=== PATIENT | female | born 1985 | race Caucasian/White ===

== ENCOUNTER 2017-10-28 10:31 | Emergency (ER) | payer OTHER ==
--- NOTE | 2017-10-28 11:19 | ED ---
General Adult HPI - General Chief complaint: Vaginal Bleeding Stated complaint: Bleeding/11 wks Time Seen by Provider: 10/28/17 11:09 Source: patient, RN notes reviewed Mode of arrival: ambulatory Limitations: no limitations - History of Present Illness Initial comments: 32-year-old female presents to the emergency department with a chief complaint of vaginal bleeding in . Patient is currently 11 weeks . She is a . Patient states she started have some vaginal bleeding. There is no cramping with it. She states that she has not had any ultrasound yet in this . They were concerned due to her pain so she thought that she should be evaluated. Patient denies any recent fever, chills, shortness of breath, chest pain, back pain, abdominal pain, nausea vomiting, numbness or tingling, dysuria or hematuria, constipation or diarrhea, headaches or visual changes, or any other current symptoms. - Related Data Home Medications Medication Instructions Recorded Confirmed Levothyroxine Sodium [Synthroid] 150 mcg PO QAM 10/28/17 10/28/17 Mez-Cdkk-Kapnz Acid 1 cap PO W/SUPPER 10/28/17 10/28/17 [-U Capsule (formulary)] Allergies Allergy/AdvReac Type Severity Reaction Status Date / Time No Known Allergies Allergy Verified 10/28/17 10:58 Review of Systems ROS Statement: Those systems with pertinent positive or pertinent negative responses have been documented in the HPI. ROS Other: All systems not noted in ROS Statement are negative. Past Medical History Past Medical History: Thyroid Disorder History of Any Multi-Drug Resistant Organisms: None Reported Past Surgical History: Ear Surgery Additional Past Surgical History / Comment(s): D&C Past Psychological History: No Psychological Hx Reported Smoking Status: Former smoker Past Alcohol Use History: None Reported Past Drug Use History: None Reported General Exam - General Exam Comments Initial Comments: General: The patient is awake and alert, in no distress, and does not appear acutely ill. Eye: Pupils are equal, round and reactive to light, extra-ocular movements are intact; there is normal conjunctiva bilaterally. No signs of icterus. Ears, nose, mouth and throat: There are moist mucous membranes. Neck: The neck is supple, there is no tenderness. Cardiovascular: There is a regular rate and rhythm. No murmur, rub or gallop is appreciated. Respiratory: Lungs are clear to auscultation, respirations are non-labored, breath sounds are equal. No wheezes, stridor, rales, or rhonchi. Gastrointestinal: Soft, non-distended, non-tender abdomen without masses or organomegaly noted. There is no rebound or guarding present. No CVA tenderness. Bowel sounds are unremarkable. Back: There is no tenderness to palpation in the midline. There is no obvious deformity. No rashes noted. Musculoskeletal: Normal ROM, no tenderness, There is no pedal edema. There is no calf tenderness or swelling. Sensation intact. Pulses equal bilaterally 2+. Neurological: CN II-XII intact, There are no obvious motor or sensory deficits. Coordination appears grossly intact. Speech is normal. Skin: Skin is warm and dry and no rashes or lesions are noted. Psychiatric: Cooperative, appropriate mood & affect, normal judgment. Limitations: no limitations Course Vital Signs 10/28/17 10:43 Temperature 99.7 F H Pulse Rate 83 Respiratory 18 Rate Blood Pressure 167/83 O2 Sat by Pulse 97 Oximetry Medical Decision Making - Medical Decision Making 32-year-old female presents for vaginal bleeding in . At this time patient's ultrasound lab work is been reviewed. We did discuss the pelvic area throat. She states she'll follow-up with her only THERAPIST SPEECH for this. We did discuss results return parameters all questions. Patient stated that she understood and she is given plan. She'll be discharged. - Lab Data Result diagrams: 10/28/17 11:42 10/28/17 11:42 Lab Results 10/28/17 10/28/17 10/28/17 Range/Units 11:42 11:42 11:42 WBC 8.2 (3.8-10.6) k/uL RBC 4.42 (3.80-5.40) m/uL Hgb 13.2 (11.4-16.0) gm/dL Hct 39.4 (34.0-46.0) % MCV 89.1 (80.0-100.0) fL MCH 29.9 (25.0-35.0) pg MCHC 33.6 (31.0-37.0) g/dL RDW 12.5 (11.5-15.5) % Plt Count 257 (150-450) k/uL Neutrophils % 70 % Lymphocytes % 22 % Monocytes % 4 % Eosinophils % 2 % Basophils % 0 % Neutrophils # 5.8 (1.3-7.7) k/uL Lymphocytes # 1.8 (1.0-4.8) k/uL Monocytes # 0.3 (0-1.0) k/uL Eosinophils # 0.2 (0-0.7) k/uL Basophils # 0.0 (0-0.2) k/uL Sodium 137 (137-145) mmol/L Potassium 4.2 (3.5-5.1) mmol/L Chloride 106 (98-107) mmol/L Carbon Dioxide 21 L (22-30) mmol/L Anion Gap 10 mmol/L BUN 7 (7-17) mg/dL Creatinine 0.51 L (0.52-1.04) mg/dL Est GFR (MDRD) Af Amer >60 (>60 ml/min/1.73 sqM) Est GFR (MDRD) Non-Af >60 (>60 ml/min/1.73 sqM) Glucose 89 (74-99) mg/dL Calcium 9.6 (8.4-10.2) mg/dL Total Bilirubin 0.2 (0.2-1.3) mg/dL AST 18 (14-36) U/L ALT 25 (9-52) U/L Alkaline Phosphatase 55 (38-126) U/L Total Protein 6.6 (6.3-8.2) g/dL Albumin 3.9 (3.5-5.0) g/dL HCG, Quant 27305.9 mIU/mL Urine Color Urine Appearance (Clear) Urine pH (5.0-8.0) Ur Specific [place] (1.001-1.035) Urine Protein (Negative) Urine Glucose (UA) (Negative) Urine Ketones (Negative) Urine Blood (Negative) Urine Nitrite (Negative) Urine Bilirubin (Negative) Urine Urobilinogen (<2.0) mg/dL Ur Leukocyte Esterase (Negative) Urine RBC (0-5) /hpf Urine WBC (0-5) /hpf Ur Squamous Epith Cells (0-4) /hpf Urine Bacteria (None) /hpf Urine Mucus (None) /hpf Blood Type O Positive Blood Type Recheck No 10/28/17 Range/Units 11:42 WBC (3.8-10.6) k/uL RBC (3.80-5.40) m/uL Hgb (11.4-16.0) gm/dL Hct (34.0-46.0) % MCV (80.0-100.0) fL MCH (25.0-35.0) pg MCHC (31.0-37.0) g/dL RDW (11.5-15.5) % Plt Count (150-450) k/uL Neutrophils % % Lymphocytes % % Monocytes % % Eosinophils % % Basophils % % Neutrophils # (1.3-7.7) k/uL Lymphocytes # (1.0-4.8) k/uL Monocytes # (0-1.0) k/uL Eosinophils # (0-0.7) k/uL Basophils # (0-0.2) k/uL Sodium (137-145) mmol/L Potassium (3.5-5.1) mmol/L Chloride (98-107) mmol/L Carbon Dioxide (22-30) mmol/L Anion Gap mmol/L BUN (7-17) mg/dL Creatinine (0.52-1.04) mg/dL Est GFR (MDRD) Af Amer (>60 ml/min/1.73 sqM) Est GFR (MDRD) Non-Af (>60 ml/min/1.73 sqM) Glucose (74-99) mg/dL Calcium (8.4-10.2) mg/dL Total Bilirubin (0.2-1.3) mg/dL AST (14-36) U/L ALT (9-52) U/L Alkaline Phosphatase (38-126) U/L Total Protein (6.3-8.2) g/dL Albumin (3.5-5.0) g/dL HCG, Quant mIU/mL Urine Color Yellow Urine Appearance Clear (Clear) Urine pH 5.5 (5.0-8.0) Ur Specific [place] 1.013 (1.001-1.035) Urine Protein Negative (Negative) Urine Glucose (UA) Negative (Negative) Urine Ketones Negative (Negative) Urine Blood Large H (Negative) Urine Nitrite Negative (Negative) Urine Bilirubin Negative (Negative) Urine Urobilinogen <2.0 (<2.0) mg/dL Ur Leukocyte Esterase Negative (Negative) Urine RBC 2 (0-5) /hpf Urine WBC <1 (0-5) /hpf Ur Squamous Epith Cells 1 (0-4) /hpf Urine Bacteria Rare H (None) /hpf Urine Mucus Rare H (None) /hpf Blood Type Blood Type Recheck - Radiology Data Radiology results: report reviewed, image reviewed Disposition Clinical Impression: Vaginal bleeding during , antepartum, Subchorionic bleed Disposition: HOME SELF-CARE Condition: Stable Instructions: (ED) Additional Instructions: Please use medication as discussed. Please follow up with family doctor if symptoms have not improved over the next two days. Please return to the emergency room if your symptoms increase or worsen or for any other concerns. Referrals: Yadi Bright MD [Primary Care Provider] - 1-2 days Time of Disposition: 13:01
[2017-10-28 12:05] LABS: Basophils % (A) 0 %; Eosinophils # (A) 0.2 k/uL (0-0.7); Eosinophils % (A) 2 %; HCT 39.4 % (34.0-46.0); HGB 13.2 gm/dL (11.4-16.0); Lymphocytes # (A) 1.8 k/uL (1.0-4.8); Lymphocytes % (A) 22 %; MCH 29.9 pg (25.0-35.0); MCHC 33.6 g/dL (31.0-37.0); MCV 89.1 fL (80.0-100.0); Mean Platelet Volume 7.6; Monocytes # (A) 0.3 k/uL (0-1.0); Monocytes % (A) 4 %; Neutrophils # (A) 5.8 k/uL (1.3-7.7); Neutrophils % (A) 70 %; Platelet Count 257 k/uL (150-450); RBC 4.42 m/uL (3.80-5.40); RDW 12.5 % (11.5-15.5); WBC 8.2 k/uL (3.8-10.6)
[2017-10-28 12:13] LABS: ALT 25 U/L (9-52); AST 18 U/L (14-36); Albumin 3.9 g/dL (3.5-5.0); Alkaline Phosphatase 55 U/L (38-126); Anion Gap 10 mmol/L; Blood Urea Nitrogen 7 mg/dL (7-17); Calcium 9.6 mg/dL (8.4-10.2); Carbon Dioxide 21 mmol/L (22-30); Chloride 106 mmol/L (98-107); Glucose 89 mg/dL (74-99); Potassium 4.2 mmol/L (3.5-5.1); Sodium 137 mmol/L (137-145); Total Bilirubin 0.2 mg/dL (0.2-1.3); Total Protein 6.6 g/dL (6.3-8.2)
--- NOTE | 2017-10-28 12:32 | US ---
EXAMINATION TYPE: US OB <= 14 wk fetus DATE OF EXAM: 10/28/2017 COMPARISON: NONE CLINICAL HISTORY: Pain. Bleeding x 1 day, 4, miscarriage 3 EXAM PERFORMED: Transabdominal (TA) EXAM MEASUREMENTS: GESTATIONAL AGE / DATING Physician Established: Not established yet Dates by LMP: (11 weeks/3 days) EDC: 05/16/2018 Dates by First Scan: This is 1st scan Dates by Current Scan for: (12 weeks/1 days) EDC: 05/11/2018 MATERNAL ANATOMY Uterus: 9.6 x 6.3 x 9.0cm Right Ovary: 3.2 x 1.8 x 1.5cm Left Ovary: 3.6 x 2.2 x 3.7cm Post CDS / Adnexa: wnl Presence of free fluid: no Presence of corpus luteal cyst: left ovary: 1.8 x 1.8 x 2.1cm hypoechoic area, probable corpus luteum Presence of subchorionic bleed: 2.8 x 1.3 x 2.3cm hypoechoic superior to gestational sac, possible correa bchorionic bleed GESTATION / SURVEY CRL: 5.5cm (12 weeks/1 days) Yolk Sac (normal less than 6mm): not seen at this time Heart Rate: 167 bpm Rhythm: Normal IUP: Viable IUP Date of LMP: 08/09/2017 Beta HcG (if available): Not available at time of exam IMPRESSION: Viable single IUP measuring 12 weeks 1 day with a heart rate of 167bpm and an estimated delivery date of 05/11/2018. 2.8cm hypoechoic area superior to gestational sac, likely represents a subchorionic h emorrhage.
[2017-10-28 12:47] LABS: Appearance,Urine Clear (Clear); Bilirubin,Urine Negative (Negative); Blood,Urine Large (Negative); Color,Urine Yellow; Glucose,Urine (UA) Negative (Negative); Ketones,Urine Negative (Negative); Leukocyte Esterase,Urine Negative (Negative); Mucus,Urine Rare /hpf; Nitrite,Urine Negative (Negative); PH, Urine 5.5 (5.0-8.0); Protein,Urine Negative (Negative); RBC,Urine 2 /hpf (0-5); Specific Gravity,Urine 1.013 (1.001-1.035); Squamous Epithelial Cell,Urine 1 /hpf (0-4); Urobilinogen,Urine <2.0 mg/dL (<2.0); WBC,Urine <1 /hpf (0-5)
[2017-10-28 12:50] LABS: Bacteria,Urine Rare /hpf
[2017-10-28 13:00] LABS: HCG,Quantitative Serum 83922.9 mIU/mL
[2017-10-28 13:14] VITALS: BP 143/89; PULSE 67; RESP 16; TEMP 97.6
== END 2017-10-28 13:14 | disposition home or self-care (01) ==
LOC: EC 10:31
DX: O20.8 Other hemorrhage in early pregnancy (principal); O99.281 Endocrine, nutritional and metabolic diseases complicating pregnancy, first trimester; Z3A.11 11 weeks gestation of pregnancy; Z87.891 Personal history of nicotine dependence; Z79.899 Other long term (current) drug therapy
CPT/HCPCS: 36415; 76801; 80053; 81001; 84702; 85025; 86900; 86901; 87086; 99284

== ENCOUNTER 2020-10-10 06:19 | Inpatient (IN) | payer OTHER ==
[2020-10-04 17:37] VITALS: BMI 45.8
--- NOTE | 2020-10-09 19:31 | P.HPOB ---
History of Present Illness H&P Date: 10/09/20 Chief Complaint: Scheduled repeat section This is a 34 y.o. female 6, para 1, with an estimated date of confinement of 10/15/2020, estimated gestational age of 39-2/7 weeks, who presents for scheduled repeat section. She has good movement and irregular contractions. course has been uncomplicated. Initial drug screen was positive for marijuana, but repeat screen was neg. labs: Hepatitis B surface antigen-neg RPR-NR Rubella-immune Blood type-O+ Antibody screen-neg Hemoglobin-12.9 Random glucose-104 Quad-wnl 1 hr. GTT-151; 3 hr. GTT-wnl GBS-positive OB Hx: Hx 3 miscarriages and 1 termination of . Last was primary for macrosomia at term with wt. of 12#. Vehicle Check In Clerk Hx: No hx STDs. Review of Systems Constitutional: Denies chills, Denies fever Eyes: denies blurred vision, denies pain Ears, nose, mouth and throat: Denies headache, Denies sore throat Cardiovascular: Denies chest pain, Denies shortness of breath Respiratory: Denies cough Gastrointestinal: Reports abdominal pain (mild) Genitourinary: Reports pelvic pain, Reports Musculoskeletal: Reports low back pain Integumentary: Denies pruritus, Denies rash Neurological: Denies numbness, Denies weakness Psychiatric: Denies anxiety, Denies depression Past Medical History Past Medical History: Thyroid Disorder History of Any Multi-Drug Resistant Organisms: None Reported Past Surgical History: Section Additional Past Surgical History / Comment(s): D&C, myringotomy with tubes, wisdom teeth Past Anesthesia/Blood Transfusion Reactions: No Reported Reaction Past Psychological History: No Psychological Hx Reported Smoking Status: Former smoker Past Alcohol Use History: None Reported 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 No significant issues noted on an osteopathic structural exam other than those noted in the History and Physical/Consult. HEENT: within normal limits Heart: regular rate and rhythm Lungs: clear to auscultation bilaterally Abdomen: , FH-45 cm. Cervix: closed/50%/out of pelvis Extremities: neg. Hugh's Results Result Diagrams: 10/10/20 06:42 Assessment and Plan (1) 39 weeks gestation of Current Visit: No Status: Acute Code(s): Z3A.39 - 39 WEEKS GESTATION OF Jojo GONZALES SNOMED Code(s): 03777991 (2) Previous section Current Visit: No Status: Acute Code(s): Z98.891 - HISTORY OF UTERINE SCAR FROM PREVIOUS SURGERY SNOMED Code(s): 310815546 Plan: Proceed with repeat section. I have discussed the risks, benefits, and alternative therapies for the above-mentioned procedure and for both sedation/anesthesia as well as necessary blood products administration, if indicated, as they pertain to this patient. The patient has indicated her understanding and acceptance of the risks and procedures discussed.
[2020-10-10] MEDS ORDERED: LACTATED RINGERS 1,000 ML IV ONE (06:33)
[2020-10-10] MEDS ORDERED: LIDOCAINE 1% (10MG/ML) FOR IV START INTRADERMA PRN (06:33)
[2020-10-10] MEDS ORDERED: CITRIC ACID-SODIUM CITRATE 15 ML CUP PO ONE (06:33)
[2020-10-10] MEDS ORDERED: ceFAZolin 3 GM in SODIUM CHLORIDE 0.9% 100 ML IVPB ONE (06:33)
[2020-10-10 06:59] LABS: Basophils # (A) 0.1 k/uL (0-0.2); Basophils % (A) 1 %; Eosinophils # (A) 0.3 k/uL (0-0.7); Eosinophils % (A) 2 %; HCT 40.1 % (34.0-46.0); HGB 13.5 gm/dL (11.4-16.0); Lymphocytes # (A) 2.9 k/uL (1.0-4.8); Lymphocytes % (A) 22 %; MCH 30.4 pg (25.0-35.0); MCHC 33.7 g/dL (31.0-37.0); MCV 90.3 fL (80.0-100.0); Mean Platelet Volume 8.2; Monocytes # (A) 0.6 k/uL (0-1.0); Monocytes % (A) 5 %; Neutrophils # (A) 8.8 k/uL (1.3-7.7); Neutrophils % (A) 69 %; Platelet Count 264 k/uL (150-450); RBC 4.44 m/uL (3.80-5.40); RDW 13.3 % (11.5-15.5); WBC 12.8 k/uL (3.8-10.6)
[2020-10-10] MEDS ORDERED: KETOROLAC 15 MG/ML 1 ML VIAL ONE (07:55)
[2020-10-10] MEDS ORDERED: OXYTOCIN 10 UNIT/ML 1 ML VIAL ONE (07:55)
[2020-10-10] MEDS ORDERED: MORPHINE SULFATE (PF) 0.3 MG/0.3 ML SYR ONE (07:55)
[2020-10-10] MEDS ORDERED: ePHEDrine SULFATE/0.9% NACL/PF 50 MG/5 ML SYRINGE IV ONE (07:55)
--- NOTE | 2020-10-10 08:45 | P.OP ---
Date of Procedure: 10/10/20 Preoperative Diagnosis: 1. Intrauterine at 39-2/7 weeks. 2. History of previous section. 3. macrosomia. Postoperative Diagnosis: Same plus transverse lie Procedure(s) Performed: Repeat low transverse section Anesthesia: spinal (Duramorph) Surgeon: Marcela Lipscomb Painter Ski Edge #1: Wong Murcia Estimated Blood Loss (ml): 400 Pathology: none sent Condition: stable Disposition: floor Indications for Procedure: This is a 34-year-old female 6 para 1 at 39-2/7 weeks who presents for scheduled repeat section. She has a history of macrosomia with her last and this it appears that she has a very large baby also. Her ultrasound at 35 weeks' did show baby in a breech presentation. I have discussed the risks, benefits, and alternative therapies for the above- mentioned procedure and for both sedation/anesthesia as well as necessary blood products administration, if indicated, as they pertain to this patient. The patient has indicated her understanding and acceptance of the risks and procedures discussed. Operative Findings: A viable male infant is noted in the transverse lie with head towards the left lower pelvis. scores are 9 at 1 minute and 9 at 5 minutes and infant weight is 9 lbs. 8 oz. Normal uterus tubes and ovaries are noted. Description of Procedure: The patient is taken to the operating room where she is placed in the dorsal supine position with leftward tilt after spinal Duramorph anesthesia is given. She is prepped and draped in the normal sterile fashion. Skin was tested and found to be adequately anesthetized. A Pfannenstiel skin incision was made with a scalpel through the previous laparotomy scar. A second knife was used to carry the incision down to the underlying layer of fascia. The fascia was nicked in the midline with a scalpel and then extended laterally bilaterally with Donis scissors. There was significant rectus muscle diastases. The anterior lip of the fascia was grasped with 2 Bean clamps and then dissected off the underlying rectus muscle in the midline with Donis scissors. The inferior aspect of the fascial incision was grasped with 2 Bean clamps and dissected off the underlying rectus muscle and the midline with Donis scissors. Next the peritoneum layer was tented up with 2 hemostats and then entered sharply with the scalpel. The incision is extended superiorly and inferiorly with Metzenbaum scissors. Next a DeLee retractor is placed. The vesicouterine peritoneum is entered sharply with Metzenbaum scissors and extended laterally bilaterally with Metzenbaum scissors and then the bladder flap is pushed inferiorly. The lower uterine segment is incised in transverse fashion with the scalpel and then bluntly entered with a hemostat. Clear fluid is noted. The incision was then extended laterally bilaterally with 2 fingers. The was noted to be in transverse lie with the head towards the left side. The head was brought to the incision. Next the 's head is delivered through the incision. Nose and mouth are bulb suctioned. The remainder of the infant is easily delivered and placed on mother's abdomen. Cord is clamped and cut. is taken to warmer by nursing staff. Uterine fundus is gently massaged and placenta is delivered manually. Uterus is exteriorized and cleared of all clots and debris. Uterine incision is closed with 0 Vicryl suture in a running locked fashion. A second layer of 0 Vicryl suture is used in a running fashion for hemostasis. Posterior cul-de-sac is suctioned of all clots and debris. Uterus is returned to the abdomen. Incision is noted to be hemostatic. Peritoneal layer is closed with 0 Vicryl suture in a running fashion. There is noted to be some omental adhesion to the left lower side of the anterior abdominal wall. The muscle was not brought together due to diastases. Fascia layer is then closed with 0 PDS suture with 2 sutures meeting in the midline and the knots buried in either side and in the midline. The subcutaneous tissue was then closed with 2-0 Vicryl suture. Skin layer was then closed with ronald. All sponge and needle counts are correct. The patient is taken to recovery room in stable condition.
[2020-10-10] MEDS ORDERED: ACETAMINOPHEN TAB 325 MG TAB PO PRN (09:13)
[2020-10-10] MEDS ORDERED: OXYTOCIN 20 UNITS/1000 ML NS 1,000 ML IV SCH (09:13)
[2020-10-10] MEDS ORDERED: HYDROcodone/APAP 7.5-325MG 1 EACH TAB PO PRN (09:13)
[2020-10-10] MEDS ORDERED: HYDROcodone/APAP 5-325MG 1 EACH TAB PO PRN (09:13)
[2020-10-10] MEDS ORDERED: diphenhydrAMINE 25 MG CAP PO PRN (09:13)
[2020-10-10] MEDS ORDERED: ZOLPIDEM 5 MG TAB PO PRN (09:13)
[2020-10-10] MEDS ORDERED: METOCLOPRAMIDE 5 MG/ML 2 ML VIAL IVP PRN (09:13)
[2020-10-10] MEDS ORDERED: diphenhydrAMINE 50 MG CAP PO PRN (09:13)
[2020-10-10] MEDS ORDERED: SIMETHICONE 80 MG CHEWABLE PO PRN (09:13)
[2020-10-10] MEDS ORDERED: ONDANSETRON 4 MG/2 ML VIAL IVP PRN (09:13)
[2020-10-10] MEDS ORDERED: LANOLIN CREAM 5 GM TUBE TOPICAL PRN (09:13)
[2020-10-10] MEDS ORDERED: NALOXONE 0.4 MG/ML 1 ML VIAL IV PRN (09:13)
[2020-10-10] MEDS ORDERED: diphenhydrAMINE 50 MG/ML 1 ML VIAL IVP PRN ×2 (09:13)
[2020-10-10] MEDS: LACTATED RINGERS 1,000 ML IV SCH ×3 (09:57→23:49)
[2020-10-10] MEDS: LEVOTHYROXINE 75 MCG TAB PO SCH (11:23)
[2020-10-10] MEDS: KETOROLAC 15 MG/ML 1 ML VIAL IVP PRN ×2 (16:20→22:24)
[2020-10-10] MEDS: SENNOSIDES-DOCUSATE SODIUM 1 EACH TAB PO SCH (19:51)
[2020-10-11] MEDS: KETOROLAC 15 MG/ML 1 ML VIAL IVP PRN (05:34)
[2020-10-11 06:33] LABS: Basophils # (A) 0.1 k/uL (0-0.2); Basophils % (A) 0 %; Eosinophils # (A) 0.1 k/uL (0-0.7); Eosinophils % (A) 1 %; HCT 38.4 % (34.0-46.0); Lymphocytes % (A) 17 %; MCH 30.6 pg (25.0-35.0); MCHC 33.8 g/dL (31.0-37.0); MCV 90.5 fL (80.0-100.0); Mean Platelet Volume 7.7; Monocytes # (A) 0.5 k/uL (0-1.0); Monocytes % (A) 4 %; Neutrophils # (A) 8.6 k/uL (1.3-7.7); Neutrophils % (A) 76 %; Platelet Count 224 k/uL (150-450); RBC 4.24 m/uL (3.80-5.40); RDW 13.4 % (11.5-15.5); WBC 11.4 k/uL (3.8-10.6)
[2020-10-11] MEDS: SENNOSIDES-DOCUSATE SODIUM 1 EACH TAB PO SCH ×2 (07:33→22:20)
[2020-10-11] MEDS: LEVOTHYROXINE 75 MCG TAB PO SCH (07:33)
--- NOTE | 2020-10-11 08:24 | P.PN ---
Progress Note - Text Progress Note Date: 10/11/20 (366) Anesthesia Postop day 1 Subjective: Status Post section with Duramorph. Patient seen and examined. Doing well without complaint. VAS 2 out of 10. No nausea vomiting or pruritus.. Afebrile. Gross lower extremity strength intact. Patient has been ambulating. Without apparent anesthetic complications. Objective: Vital signs reviewed Heart: Regular Rate Lungs: Good chest excursion Abdomen: Appears nondistended Assessment: Status post with Duramorph postop day 1 Plan: Continue current care with your medical management.
--- NOTE | 2020-10-11 13:15 | P.PNOBGPC ---
Subjective - Subjective Principal diagnosis: status post repeat section postoperative day #1 Interval history: Patient is doing well. She is ambulating. She is passing some flatus but no bowel movement yet. She has been able to urinate today but did have some trouble with it yesterday. She is bottle feeding. Lochia is decreasing. Patient reports: Reports appetite normal, Reports voiding normally, Reports pain well controlled, Reports ambulating normally : doing well, bottle feeding Objective - Vital Signs Latest vital signs: Vital Signs Temp Pulse Resp BP Pulse Ox 10/11/20 08:00 98.7 F 87 18 119/88 98 10/11/20 03:56 98.0 F 77 16 127/87 98 10/10/20 23:46 99.1 F 74 16 117/79 97 10/10/20 20:00 98.7 F 83 16 142/84 99 10/10/20 15:51 98.8 F 76 18 106/69 99 Intake and Output 10/10/20 10/11/20 10/11/20 22:59 06:59 14:59 Output Total 1200 1900 700 Balance -1200 -1900 -700 Output: Urine 1200 1900 700 Straight 700 Uretheral ([place]) 600 1200 Other: # Voids 1 - Exam Extremities: Present: edema (trace). Absent: tenderness Abdomen: Present: normal appearance, soft (positive bowel sounds 4). Absent: distention Incision: Present: normal, dry, intact. Absent: erythematous Uterus: Present: normal, firm. Absent: tenderness - Labs Labs: Abnormal Lab Results - Last 24 Hours (Table) 10/11/20 Range/Units 06:12 WBC 11.4 H (3.8-10.6) k/uL Neutrophils # 8.6 H (1.3-7.7) k/uL Assessment and Plan Assessment: status post repeat section postoperative day #1 (1) 39 weeks gestation of Current Visit: No Status: Acute Code(s): Z3A.39 - 39 WEEKS GESTATION OF SNOMED Code(s): 44095279 (2) Previous section Current Visit: No Status: Acute Code(s): Z98.891 - HISTORY OF UTERINE SCAR FROM PREVIOUS SURGERY SNOMED Code(s): 590482871 Plan: Continue with postoperative care today. Anticipate probable discharge home tomorrow.
[2020-10-11] MEDS: IBUPROFEN 600 MG TAB PO PRN ×2 (15:13→21:49)
[2020-10-11] MEDS: LACTATED RINGERS 1,000 ML IV SCH ×2 (22:21→22:22)
[2020-10-11 23:28] VITALS: RESP 18
[2020-10-12] MEDS: IBUPROFEN 600 MG TAB PO PRN (07:40)
[2020-10-12] MEDS: LEVOTHYROXINE 75 MCG TAB PO SCH (07:41)
[2020-10-12] MEDS: SENNOSIDES-DOCUSATE SODIUM 1 EACH TAB PO SCH (08:00)
[2020-10-12 08:49] VITALS: BP 126/71; PULSE 91; TEMP 98.6
--- NOTE | 2020-10-12 09:04 | P.DS ---
Providers Date of admission: 10/10/20 06:19 Expected date of discharge: 10/12/20 Attending physician: Marcela Lipscomb Primary care physician: Stated None - Discharge Diagnosis(es) (1) 39 weeks gestation of Current Visit: No Status: Acute (2) Previous section Current Visit: No Status: Acute Hospital Course: This is a 34-year-old female 6 para 1 at 39-2/7 weeks who presented for scheduled repeat section. She underwent a repeat low transverse section and delivered a viable male in the transverse lie with scores of 9 at 1 minute and 9 at 5 minutes and weight of 9 lbs. 8 oz. Her postoperative course has been uncomplicated. She is passing flatus and bowel movement. She is urinating without difficulty now. Lochia is decreasing. She has been only using ibuprofen for pain. She is bottle feeding. Vital signs are stable. Abdomen soft with positive bowel sounds 4. Incision is clean dry and intact with ronald in place. Extremities show negative Homans. Impression is status post repeat low transverse section postoperative day #2. Plan is to discharge home today. Routine postoperative and instructions are given. She will be given a prescription for ibuprofen. Ronald will be removed and Steri-Strips placed prior to discharge. She is advised to call the office if she has any further questions or concerns prior to her appointment times. She is advised follow-up in approximately 1 week for a postoperative check and in 6 weeks for check. Procedures: Repeat low transverse section on 10/10/2020 Patient Condition at Discharge: Stable Plan - Discharge Summary Discharge Rx Participant: No New Discharge Prescriptions: New Ibuprofen [Motrin] 600 mg PO Q6HR PRN #60 tab PRN Reason: Mild Pain Or Fever >= 100.5 Continue Levothyroxine Sodium [Synthroid] 150 mcg PO QAM Stq-Tjvi-Clfna Acid [-U Capsule (formulary)] 1 cap PO W/SUPPER Discharge Medication List Levothyroxine Sodium [Synthroid] 150 mcg PO QAM 10/28/17 [History] Qwv-Jxan-Ckxto Acid [-U Capsule (formulary)] 1 cap PO W/SUPPER 10/28/17 [History] Ibuprofen [Motrin] 600 mg PO Q6HR PRN #60 tab 10/12/20 [Rx] Follow up Appointment(s)/Referral(s): Marcela Lipscomb DO [Doctor of Osteopathic Medicine] - 1 Week Activity/Diet/Wound Care/Special Instructions: Instructions 1. Do not begin any exercise program for 3 weeks. 2. Do not resume sexual relations for 3 weeks or longer if uncomfortable. 3. You may take tub baths or showers at any time. 4. You may use tampons if desired after 3 weeks. 5. Keep the area of episiotomy (stitches) clean and dry. 6. If you are not nursing, wear a good fitting, supportive bra during the day and limit fluid intake for at least 1 week to prevent breast engorgement. 7. Call the office, [phone], within the next week to make appointment for your 6 week checkup if it has not already been made. 8. Report any of the following occurrences to the doctor promptly: a. Heavy, excessive bleeding b. Chills, fever c. Burning or frequency of urination d. Pain or redness and breasts if nursing e. Increasing pain or swelling in episiotomy (stitches). In addition to the above instructions, the following additional should be followed: 1. No heavy lifting or straining (exercising) until after 6 week checkup. 2. Keep abdominal incision clean and dry: You may wear a dressing if more comfortable. 3. Make office appointment for 10 days after going home or as instructed by her doctor. Discharge Disposition: HOME SELF-CARE
== END 2020-10-12 11:00 | disposition home or self-care (01) | DRG 788 ==
LOC: 4FBP 06:19
PROVIDERS: ADMIT Obstetrics & Gynecology; ATTEND Obstetrics & Gynecology
PROC: 10D00Z1 Extraction of Products of Conception, Low, Open Approach (ICD-10-PCS; principal; 2020-10-10 08:00)
DX: O34.211 Maternal care for low transverse scar from previous cesarean delivery (principal); O32.2XX0 Maternal care for transverse and oblique lie, not applicable or unspecified; O32.1XX0 Maternal care for breech presentation, not applicable or unspecified; Z37.0 Single live birth; O36.63X0 Maternal care for excessive fetal growth, third trimester, not applicable or unspecified; O99.284 Endocrine, nutritional and metabolic diseases complicating childbirth; E03.9 Hypothyroidism, unspecified; Z3A.39 39 weeks gestation of pregnancy; Z82.49 Family history of ischemic heart disease and other diseases of the circulatory system; Z79.890 Hormone replacement therapy; Z87.891 Personal history of nicotine dependence; Z83.3 Family history of diabetes mellitus
CPT/HCPCS: 85025; 86850; 86900; 86901

== ENCOUNTER 2025-04-22 10:55 | Emergency (ER) | payer OTHER ==
[2025-04-22 11:01] VITALS: RESP 18
--- NOTE | 2025-04-22 11:27 | ED ---
General Adult HPI - General Chief complaint: Vaginal Bleeding Stated complaint: Vaginal bleeding Time Seen by Provider: 04/22/25 11:05 Source: patient, RN notes reviewed Mode of arrival: ambulatory Limitations: no limitations - History of Present Illness Initial comments: 39-year-old female presents to the emergency department for evaluation of abnormal vaginal bleeding. Patient notes that her last menstrual cycle was about 2 weeks ago. She reports last night that she started experiencing heavy vaginal bleeding. She notes that she had clots at that time. She does report that it has since decreased significantly and now she is only having minimal bleeding. She endorses lower abdominal cramping and low back ache. She denies any possibility of . - Related Data Home Medications Medication Instructions Recorded Confirmed Levothyroxine Sodium [Synthroid] 150 mcg PO DAILY 10/28/17 01/28/23 norgestimate-ethinyl estradioL 1 tab PO DAILY 01/28/23 01/28/23 [Margarita 0.25-0.035 mg Tablet] Allergies Allergy/AdvReac Type Severity Reaction Status Date / Time No Known Allergies Allergy Verified 04/22/25 11:00 Review of Systems ROS Statement: Those systems with pertinent positive or pertinent negative responses have been documented in the HPI. ROS Other: All systems not noted in ROS Statement are negative. Past Medical History Past Medical History: Thyroid Disorder Additional Past Medical History / Comment(s): umbilical hernia History of Any Multi-Drug Resistant Organisms: None Reported Past Surgical History: Section Additional Past Surgical History / Comment(s): D&C, myringotomy with tubes, wisdom teeth Past Anesthesia/Blood Transfusion Reactions: No Reported Reaction Past Psychological History: No Psychological Hx Reported Smoking Status: Former smoker Past Alcohol Use History: None Reported Past Drug Use History: Heroin - Past Family History Mother Family Medical History: Diabetes Mellitus, Hypertension General Exam Limitations: no limitations General appearance: alert, in no apparent distress Head exam: Present: atraumatic, normocephalic, normal inspection Eye exam: Present: normal appearance, PERRL, EOMI. Absent: scleral icterus, conjunctival injection, periorbital swelling ENT exam: Present: normal exam, mucous membranes moist Neck exam: Present: normal inspection. Absent: tenderness, meningismus, lymphadenopathy Respiratory exam: Present: normal lung sounds bilaterally. Absent: respiratory distress, wheezes, rales, rhonchi, stridor Cardiovascular Exam: Present: regular rate, normal rhythm, normal heart sounds. Absent: systolic murmur, diastolic murmur, rubs, gallop, clicks GI/Abdominal exam: Present: soft, normal bowel sounds. Absent: distended, tenderness, guarding, rebound, rigid Extremities exam: Present: normal inspection, full ROM, normal capillary refill. Absent: tenderness, pedal edema, joint swelling, calf tenderness Back exam: Present: normal inspection Neurological exam: Present: alert, oriented X3 Psychiatric exam: Present: normal affect, normal mood Skin exam: Present: warm, dry, intact, normal color. Absent: rash Course Vital Signs 04/22/25 10:57 Temperature 98.1 F Pulse Rate 101 H Respiratory 18 Rate Blood Pressure 159/99 O2 Sat by Pulse 99 Oximetry Medical Decision Making - Medical Decision Making Was pt. sent in by a medical professional or institution (, PA, PRODUCTION TROUBLESHOOTER, urgent care, hospital, or half-way...) When possible be specific @ -[No] Did you speak to anyone other than the patient for history (EMS, parent, family, police, friend...)? What history was obtained from this source @ -[No] Did you review nursing and triage notes (agree or disagree)? Why? @ -[I reviewed and agree with nursing and triage notes] Were old charts reviewed (outside hosp., previous admission, EMS record, old EKG, old radiological studies, urgent care reports/EKG's, half-way records)? Report findings @ -[No old charts were reviewed] Differential Diagnosis (chest pain, altered mental status, abdominal pain women, abdominal pain men, vaginal bleeding, weakness, fever, dyspnea, syncope, headache, dizziness, GI bleed, back pain, seizure, CVA, palpatations, mental health, musculoskeletal)? @ -[Differential Vaginal Bleeding: Spontaneous , threatened , molar , ectopic , bloody show, incompetent cervix, abruptioplacenta, placenta previa, uterine rupture, dysfunctional uterine bleeding, hemorrhage, uterine fibroids, this is not meant to be an all-inclusive list. ] EKG interpreted by me (3pts min.). @ -[As above] X-rays interpreted by me (1pt min.). @ -[None done] CT interpreted by me (1pt min.). @ -[None done] U/S interpreted by me (1pt. min.). @ -[None done] What testing was considered but not performed or refused? (CT, X-rays, U/S, labs)? Why? @ -[None] What meds were considered but not given or refused? Why? @ -[None] Did you discuss the management of the patient with other professionals (professionals i.e. Dr., PA, PRODUCTION TROUBLESHOOTER, lab, RT, psych nurse, dialysis social worker, head of drama, teacher, air antisubmarine officer, case work aide)? Give summary @ -[No] Was smoking cessation discussed for >3mins.? @ -[No] Was critical care preformed (if so, how long)? @ -[No] Were there social determinants of health that impacted care today? How? (Homelessness, low income, unemployed, alcoholism, drug addiction, transportation, low edu. Level, literacy, decrease access to med. care, fpc, rehab)? @ -[No] Was there de-escalation of care discussed even if they declined (Discuss DNR or withdrawal of care, Hospice)? DNR status @ -[No] What co-morbidities impacted this encounter? (DM, HTN, Smoking, COPD, CAD, Cancer, CVA, ARF, Chemo, Hep., AIDS, mental health diagnosis, sleep apnea, morbid obesity)? @ -[None] Was patient admitted / discharged? Hospital course, mention meds given and route, prescriptions, significant lab abnormalities, going to OR and other pertinent info. @ -[hospital course] Undiagnosed new problem with uncertain prognosis? @ -[No] Drug Therapy requiring intensive monitoring for toxicity (Heparin, Nitro, Insulin, Cardizem)? @ -[No] Were any procedures done? @ -[No] Diagnosis/symptom? @ -[default] Acute, or Chronic, or Acute on Chronic? @ -[default] Uncomplicated (without systemic symptoms) or Complicated (systemic symptoms)? @ -[default] Side effects of treatment? @ -[No] Exacerbation, Progression, or Severe Exacerbation? @ -[No] Poses a threat to life or bodily function? How? (Chest pain, [place], [place], pneumonia, PE, COPD, DKA, ARF, appy, cholecystitis, CVA, Diverticulitis, Homicidal, Suicidal, threat to staff... and all critical care pts) @ -[No] - Lab Data Result diagrams: 04/22/25 11:35 04/22/25 11:35 Lab Results 04/22/25 04/22/25 04/22/25 Range/Units 11:35 11:35 11:35 WBC 8.81 (4.50-10.00) 10*3/uL RBC 3.86 L (4.10-5.20) 10*6/uL Hgb 11.0 L (12.0-15.0) g/dL Hct 33.5 L (37.2-46.3) % MCV 86.8 (80.0-97.0) fL MCH 28.5 (27.0-32.0) pg MCHC 32.8 (32.0-37.0) g/dL Plt Count 286 (140-440) 10*3/uL MPV 10.5 (9.5-12.2) fL Immature Gran % (Auto) 0.2 % Neutrophils % 65.6 % Lymphocytes % 22.6 % Monocytes % 6.7 % Eosinophils % 4.3 % Basophils % 0.6 % Immature Gran # 0.02 (0.00-0.04) 10*3/uL Neutrophils # 5.78 (1.80-7.70) 10*3/uL Lymphocytes # 1.99 (0.90-5.00) 10*3/uL Monocytes # 0.59 (0.20-1.00) 10*3/uL Eosinophils # 0.38 H (0.04-0.35) 10*3/uL Basophils # 0.05 (0.00-0.10) 10*3/uL PT 9.9 L (10.0-12.5) sec INR 0.9 (<1.2) APTT 23.0 (22.0-30.0) sec Sodium 135 L (137-145) mmol/L Potassium 4.0 (3.5-5.1) mmol/L Chloride 106 (98-107) mmol/L Carbon Dioxide 21 L (22-30) mmol/L Anion Gap 8 mmol/L BUN 11 (7-17) mg/dL Creatinine 0.59 (0.52-1.04) mg/dL Est GFR (CKD-EPI)AfAm >90 (>60 ml/min/1.73 sqM) Est GFR (CKD-EPI)NonAf >90 (>60 ml/min/1.73 sqM) Glucose 133 H (74-99) mg/dL Calcium 9.0 (8.4-10.2) mg/dL Total Bilirubin 0.4 (0.2-1.3) mg/dL AST 23 (14-36) U/L ALT 17 (4-34) U/L Alkaline Phosphatase 55 (38-126) U/L Total Protein 6.5 (6.3-8.2) g/dL Albumin 4.0 (3.5-5.0) g/dL TSH 9.840 H (0.465-4.680) mIU/L Free T4 1.02 (0.78-2.19) ng/dL Urine Color Urine Appearance (Clear) Urine pH (5.0-8.0) Ur Specific [place] (1.001-1.035) Urine Protein (Negative) Urine Glucose (UA) (Negative) Urine Ketones (Negative) Urine Blood (Negative) Urine Nitrite (Negative) Urine Bilirubin (Negative) Urine Urobilinogen (<2.0) mg/dL Ur Leukocyte Esterase (Negative) Urine RBC (0-5) /hpf Urine WBC (0-5) /hpf Urine Mucus (None) /hpf Urine HCG, Qual (Not Detectd) 04/22/25 04/22/25 Range/Units 14:21 14:21 WBC (4.50-10.00) 10*3/uL RBC (4.10-5.20) 10*6/uL Hgb (12.0-15.0) g/dL Hct (37.2-46.3) % MCV (80.0-97.0) fL MCH (27.0-32.0) pg MCHC (32.0-37.0) g/dL Plt Count (140-440) 10*3/uL MPV (9.5-12.2) fL Immature Gran % (Auto) % Neutrophils % % Lymphocytes % % Monocytes % % Eosinophils % % Basophils % % Immature Gran # (0.00-0.04) 10*3/uL Neutrophils # (1.80-7.70) 10*3/uL Lymphocytes # (0.90-5.00) 10*3/uL Monocytes # (0.20-1.00) 10*3/uL Eosinophils # (0.04-0.35) 10*3/uL Basophils # (0.00-0.10) 10*3/uL PT (10.0-12.5) sec INR (<1.2) APTT (22.0-30.0) sec Sodium (137-145) mmol/L Potassium (3.5-5.1) mmol/L Chloride (98-107) mmol/L Carbon Dioxide (22-30) mmol/L Anion Gap mmol/L BUN (7-17) mg/dL Creatinine (0.52-1.04) mg/dL Est GFR (CKD-EPI)AfAm (>60 ml/min/1.73 sqM) Est GFR (CKD-EPI)NonAf (>60 ml/min/1.73 sqM) Glucose (74-99) mg/dL Calcium (8.4-10.2) mg/dL Total Bilirubin (0.2-1.3) mg/dL AST (14-36) U/L ALT (4-34) U/L Alkaline Phosphatase (38-126) U/L Total Protein (6.3-8.2) g/dL Albumin (3.5-5.0) g/dL TSH (0.465-4.680) mIU/L Free T4 (0.78-2.19) ng/dL Urine Color Colorless Urine Appearance Clear (Clear) Urine pH 6.0 (5.0-8.0) Ur Specific [place] 1.008 (1.001-1.035) Urine Protein Negative (Negative) Urine Glucose (UA) Negative (Negative) Urine Ketones Negative (Negative) Urine Blood Moderate H (Negative) Urine Nitrite Negative (Negative) Urine Bilirubin Negative (Negative) Urine Urobilinogen <2.0 (<2.0) mg/dL Ur Leukocyte Esterase Negative (Negative) Urine RBC 92 H (0-5) /hpf Urine WBC 1 (0-5) /hpf Urine Mucus Rare H (None) /hpf Urine HCG, Qual Not Detected (Not Detectd) Disposition Clinical Impression: Dysfunctional uterine bleeding, Uterine fibroid Disposition: HOME SELF-CARE Condition: Stable Instructions (If sedation given, give patient instructions): Dysmenorrhea (ED) Additional Instructions: please follow up with OB/ EQUIPMENT OPERATOR/LABORER. Return to the emergency department for new or worsening symptoms. Is patient prescribed a controlled substance at d/c from ED?: No Referrals: Rajani Marc MD [Primary Care Provider] - 1-2 days Dora Caicedo DO [Doctor of Osteopathic Medicine] - 1-2 days
[2025-04-22 11:52] LABS: Basophils # (A) 0.05 10*3/uL (0.00-0.10); Basophils % (A) 0.6 %; Eosinophils # (A) 0.38 10*3/uL (0.04-0.35); Eosinophils % (A) 4.3 %; HCT 33.5 % (37.2-46.3); HGB 11.0 g/dL (12.0-15.0); Lymphocytes # (A) 1.99 10*3/uL (0.90-5.00); Lymphocytes % (A) 22.6 %; MCH 28.5 pg (27.0-32.0); MCHC 32.8 g/dL (32.0-37.0); MCV 86.8 fL (80.0-97.0); Monocytes # (A) 0.59 10*3/uL (0.20-1.00); Monocytes % (A) 6.7 %; Neutrophils # (A) 5.78 10*3/uL (1.80-7.70); Neutrophils % (A) 65.6 %; Platelet Count 286 10*3/uL (140-440); RBC 3.86 10*6/uL (4.10-5.20); RDW 13.9 % (11.5-14.5); WBC 8.81 10*3/uL (4.50-10.00)
[2025-04-22 12:09] LABS: INR 0.9 (<1.2); Partial Thromboplastin Time 23.0 sec (22.0-30.0); Prothrombin Time 9.9 sec (10.0-12.5)
[2025-04-22 12:13] LABS: ALT 17 U/L (4-34); AST 23 U/L (14-36); African American GFR (CKD) >90 (>60 ml/min/1.73 sqM); Albumin 4.0 g/dL (3.5-5.0); Alkaline Phosphatase 55 U/L (38-126); Anion Gap 8 mmol/L; Blood Urea Nitrogen 11 mg/dL (7-17); Calcium 9.0 mg/dL (8.4-10.2); Carbon Dioxide 21 mmol/L (22-30); Chloride 106 mmol/L (98-107); Glucose 133 mg/dL (74-99); Non-African American GFR(CKD) >90 (>60 ml/min/1.73 sqM); Potassium 4.0 mmol/L (3.5-5.1); Sodium 135 mmol/L (137-145); Total Protein 6.5 g/dL (6.3-8.2)
--- NOTE | 2025-04-22 13:23 | US ---
EXAMINATION TYPE: US pelvic complete DATE OF EXAM: 04/22/2025 COMPARISON: NONE CLINICAL INDICATION: Female, 39 years old with history of pain, abn bleeding; Pt states she had a hea vier than normal period 04/06/2025, period was on time, pt states she started heavy clotting last night with cramping TECHNIQUE: Transvaginal (TV) and Transabdominal (TA) . Transabdominal grayscale sonographic images of the pelvis were acquired. Transvaginal sonographic im ages were medically necessary to better assess the following anatomy: Doppler imaging: Color Doppler Images were obtained. Spectral doppler images were obtained. FINDINGS: Date of LMP: 04/06/2025 EXAM MEASUREMENTS: Uterus: 10.2x4.4x5.5 cm Endometrial Stripe: 1.4 cm Right Ovary: 2.3x1.8x0.9 cm Left Ovary: 1.3x1.3x1.0 cm slightly limited exam due to pt body habitus & overlying bowel/gas 1. Uterus: Anteverted Hypoechoic area seen within CX: 2.8x2.0x2.6cm 2. Endometrium: Anechoic area seen within endo: 1.6x0.5x2.1cm, Pt passed large clot during exam, ?possible blood pass ing through duration of exam, area resolved by end of exam, Complex looking endo: 1.4cm Endo measurement after possibly clot passin.0cm 3. Right Ovary: Slightly limited visualization, spectral doppler not well visualized 4. Left Ovary: ?Possible hyperechoic area seen vs other: 0.3x0.3x0.0.4cm Spectral, color and waveform doppler imaging shows good arterial and venous flow within the ovaries ; there is no evidence for ovarian torsion. 5. Bilateral Adnexa: wnl 6. Posterior cul-de-sac: FF seen within cul de sac IMPRESSION: Vascular endometrium with vascular lesion in the cervix correlation with beta hCG recommended. Consid er short-term follow-up ultrasound imaging in 6 weeks. Underlying polyp/fibroid are or failed pregnan cy with retained packs of conception are in the differential. [facility], , 04/22/2025 1:21 PM
[2025-04-22 13:52] LABS: T4, Free (Free Thyroxine) 1.02 ng/dL (0.78-2.19)
[2025-04-22 14:39] LABS: Bilirubin,Urine Negative (Negative); Blood,Urine Moderate (Negative); Color,Urine Colorless; Glucose,Urine (UA) Negative (Negative); Ketones,Urine Negative (Negative); Leukocyte Esterase,Urine Negative (Negative); Mucus,Urine Rare /hpf; Nitrite,Urine Negative (Negative); PH, Urine 6.0 (5.0-8.0); Protein,Urine Negative (Negative); RBC,Urine 92 /hpf (0-5); Specific Gravity,Urine 1.008 (1.001-1.035); Urobilinogen,Urine <2.0 mg/dL (<2.0); WBC,Urine 1 /hpf (0-5)
[2025-04-22 15:38] VITALS: BP 145/82; PULSE 80; TEMP 97.8
== END 2025-04-22 15:40 | disposition home or self-care (01) ==
LOC: EC 10:55
DX: N93.8 Other specified abnormal uterine and vaginal bleeding (principal); D25.9 Leiomyoma of uterus, unspecified; Z87.891 Personal history of nicotine dependence
CPT/HCPCS: 36415; 76830; 76856; 80053; 81001; 81025; 84439; 84443; 85025; 85610; 85730; 93975; 99284